=== PATIENT | male | born 1965 | race Caucasian/White ===

== ENCOUNTER 2018-07-24 11:49 | Emergency (ER) | payer OTHER ==
[~2018-07-24] VITALS: Ht 165.1 cm; Wt 87.0 kg
[~2018-07-24 11:49] MED LIST: ACET325T14 PO; AMOX-CLAV PO; DIAZ5TAB PO; HYDR-3240 PO; LUMIGAN; NAPR220T77 PO; OXYC-306 PO; OXYC5TAB3 PO; TIMO1DRO; ZOFRAN PO
[2018-07-24] MEDS ORDERED: GLUCOSAMINE PO (12:10)
[2018-07-24] MEDS ORDERED: BIMA2.5D EACHEYE (12:10)
--- NOTE | 2018-07-24 13:01 | NUR ---
MRI screen completed by this RN. pt states he has "band and buckle" in eye s/p eye surgery in 2013. pt is unsure if this contains metal. HEENA Ling notified, MRI notified. Pt's is awaiting call back from pt's eye surgeon to obtain information regarding eye "band and buckle."
[2018-07-24 13:03] VITALS: BP 122/73
--- NOTE | 2018-07-24 13:05 | NUR ---
records requested from [facility] to obtain information from pt's eye surgery
--- NOTE | 2018-07-24 13:10 | NUR ---
xray results reviewed by HEENA Crowley MD at bedside to update pt with results and POC at this time.
--- NOTE | 2018-07-24 13:16 | NUR ---
requested medical records from [facility].
--- NOTE | 2018-07-24 13:43 | NUR ---
MRI order cancelled by HEENA Ling. Pt informed of POC by , verbalizes understanding. Orders received to apply knee immobilizer to left leg. Immobilizer placed to left leg by EDT, CMS intact s/p device placement. pt using own crutches to bathroom, demonstrates appropriate crutch use. awaiting dc paperwork from at this time.
--- NOTE | 2018-07-24 13:55 | NUR ---
pt given dc instructions and script. pt educated regarding norco rx, ortho care and follow up. pt ambulated with crutch gait to dc, accompanied by . vale at dc. all questions answered.
== END 2018-07-24 13:56 | disposition home or self-care (01) ==
LOC: ED 12:48
DX: M25.461 Effusion, right knee (principal); I10 Essential (primary) hypertension
CPT/HCPCS: 29505; 99283

== ENCOUNTER 2018-08-26 13:37 | Outpatient (CLI) | payer OTHER ==
[~2018-08-26 13:37] MED LIST changes: +BIMA2.5D EACHEYE; +GLUCOSAMINE PO
[2018-08-31] MEDS ORDERED: LIDOCAINE 1%-EPI 1:100K, 30ML ONE (06:24)
== END 2018-08-26 23:59 | disposition home or self-care (01) ==
LOC: STAR 13:37
PROVIDERS: ATTEND Orthopaedic Surgery
DX: Z02.9 Encounter for administrative examinations, unspecified (principal)

== ENCOUNTER 2018-08-31 08:32 | Day surgery (SDC) | payer OTHER ==
[~2018-08-31] VITALS: Ht 165.1 cm; Wt 89.1 kg
[~2018-08-31 08:32] MED LIST changes: +ROPIvacaine/PF 0.5%, 30 ML ONE
[2018-08-31] MEDS ORDERED: ACETAMINOPHEN 500 MG TABLET PO ONE ×2 (09:00→10:00)
[2018-08-31] MEDS ORDERED: ONDANSETRON 2MG/ML, 2ML IVPush ONE ×2 (09:00→10:00)
[2018-08-31] MEDS ORDERED: DIAZEPAM 5 MG TABLET PO ONE ×2 (09:00→10:00)
[2018-08-31] MEDS ORDERED: OXYcodone IR 5MG TABLET PO ONE ×2 (09:00→10:00)
[2018-08-31] MEDS ORDERED: GABAPENTIN 300 MG CAPSULE PO ONE ×2 (09:00→10:00)
[2018-08-31] MEDS ORDERED: LACTATED RINGERS 1,000 ML IV SCH (09:34)
[2018-08-31 09:40] VITALS: BP 132/86
[2018-08-31] MEDS ORDERED: MIDAZOLAM 1 MG/ML, 2ML ONE (09:43)
[2018-08-31] MEDS ORDERED: FENTANYL PF 250 MCG/5ML ONE (09:44)
[2018-08-31] MEDS ORDERED: LIDOCAINE-MPF 1%, 2ML INFIL ONE (10:00)
[2018-08-31] MEDS ORDERED: KETOROLAC 30 MG/1 ML ONE (10:18)
[2018-08-31] MEDS ORDERED: ONDANSETRON 2MG/ML, 2ML ONE (10:18)
[2018-08-31] MEDS ORDERED: CEFAZOLIN 1,000 MG ONE (10:18)
[2018-08-31] MEDS ORDERED: DEXAMETHASONE 4 MG/ML, 5ML ONE (10:18)
[2018-08-31] MEDS ORDERED: PROPOFOL 10 MG/ML, 50ML ONE (10:18)
[2018-08-31] MEDS ORDERED: PROPOFOL 10 MG/ML, 20ML ONE (10:18)
[2018-08-31] MEDS ORDERED: LIDOCAINE 1%-EPI 1:100K, 30ML INFIL ONE (10:28)
[2018-08-31] MEDS ORDERED: ROPIvacaine/PF 0.5%, 30 ML INFIL ONE (10:28)
[2018-08-31] MEDS ORDERED: OXYcodone 5 MG/5 ML ORAL.SOL UDC PO PRN (11:00)
[2018-08-31] MEDS ORDERED: HYDROmorphone 2 MG/ML, 1ML IVPush PRN (11:00)
[2018-08-31] MEDS ORDERED: MEPERIDINE/PF 25MG/0.5ML IVPush PRN (11:00)
[2018-08-31] MEDS ORDERED: FENTANYL PF 100 MCG/2ML IV PRN (11:00)
[2018-08-31] MEDS ORDERED: ONDANSETRON 2MG/ML, 2ML IV PRN (11:00)
[2018-08-31] MEDS ORDERED: SCOPOLAMINE PATCH, 1.5MG PATCH.TD72 TD PRN (11:00)
[2018-08-31] MEDS ORDERED: FENTANYL PF 100 MCG/2ML ONE ×2 (11:38→12:19)
[2018-08-31] MEDS ORDERED: OXYcodone 5 MG/5 ML ORAL.SOL UDC ONE (12:19)
[2018-08-31] MEDS ORDERED: MEPERIDINE/PF 25MG/ML,1ML ONE (12:19)
== END 2018-08-31 16:30 | disposition home or self-care (01) ==
LOC: OUT 08:32
PROVIDERS: ATTEND Orthopaedic Surgery
DX: S83.512A Sprain of anterior cruciate ligament of left knee, initial encounter (principal); S83.412A Sprain of medial collateral ligament of left knee, initial encounter; S83.282A Other tear of lateral meniscus, current injury, left knee, initial encounter; S83.242A Other tear of medial meniscus, current injury, left knee, initial encounter; X58.XXXA Exposure to other specified factors, initial encounter; Y93.89 Activity, other specified; Y92.89 Other specified places as the place of occurrence of the external cause; Y99.8 Other external cause status; M94.262 Chondromalacia, left knee
CPT/HCPCS: 20680; 27405; 29880; 29888; 64447; C1713; C1762; J0690; J1100; J1885; J2175; J2250; J2405; J2704; J2795; J3010; J3490; J7120